=== PATIENT | female | born 1955 | race Caucasian/White ===

== ENCOUNTER → 2018-11-19 | Outpatient (CLI) | payer MEDICARE ==
--- NOTE | 2018-11-19 14:49 | KCIC ---
BILATERAL SCREENING MAMMOGRAM, 3-D History: Routine screening. Comparison: Bilateral mammogram 11/20/2017, [facility]. Technique: MLO and CC digital tomosynthesis (3D) images obtained. Radiologist reviewed these images on dedicated workstation. Findings: Breast Tissue Density A : The breasts are almost entirely fatty. Stable benign calcifications and biopsy clip in the left breast. Parenchymal asymmetry in the upper outer right breast at mid depth is stable. There are no dominant masses, suspicious microcalcifications, or architectural distortion. IMPRESSION: No mammographic evidence of malignancy. Recommend routine screening. BI-RADS category 2: Benign findings. The images were reviewed with computer-aided detection. Patient information is entered into reminder system with a target due date for the next screening mammogram. Mammography is the most sensitive method for finding small breast cancers, but it does not detect them all and is not a substitute for careful clinical examination. A negative mammogram does not negate a clinically suspicious finding and should not result in delay in biopsying a clinically suspicious abnormality. "Our facility is accredited by the [employer] Mammography [employer]." Electronically signed by: Freeman Maki MD (11/19/2018 2:46 PM) [id number]
== END | disposition home or self-care (01) ==
LOC: KCIC MAMMO 12:56
PROVIDERS: ATTEND Internal Medicine
DX: Z12.31 Encounter for screening mammogram for malignant neoplasm of breast (principal); N64.89 Other specified disorders of breast
CPT/HCPCS: 77063; 77067

== ENCOUNTER → 2019-11-13 | Outpatient (CLI) | payer MEDICARE ==
--- NOTE | 2019-11-13 13:27 | KCIC ---
Bilateral digital screening mammograms with 3-D tomosynthesis: Reason for examination: Routine screening. Comparison is made to previous studies dated back to 11/01/2015. Bilateral mammograms in CC and oblique projections were obtained with 2-D imaging and 3-D tomosynthesis imaging on a Siemens Inspiration unit and reviewed on the workstation. Interpretation was made with the benefit of CAD. The skin and nipples show no abnormalities. No abnormal axillary lymph nodes are seen. The breast parenchyma shows scattered fatty and fibroglandular density. (Breast density: Category B.) There continues to be dominant asymmetric parenchyma at the 10:00 B position of the right breast which is stable. There are no new dominant masses, suspicious calcifications or architectural distortion. Benign calcifications are present. Biopsy clip remains present on the left. Impression: No evidence of malignancy. Recommend routine screening. BI-RAD Category 2: Benign. "Our facility is accredited by the [employer] Mammography [employer]." This patient's information has been entered into a reminder system for the patient to be notified with the results of her examination and a target date for the next mammogram. Electronically signed by: Gayle Rodriguez MD (11/13/2019 1:25 PM) [email or web address]
== END ==
LOC: KCIC MAMMO 10:27
PROVIDERS: ATTEND Internal Medicine
DX: Z12.31 Encounter for screening mammogram for malignant neoplasm of breast (principal)
CPT/HCPCS: 77063; 77067

== ENCOUNTER → 2020-11-14 | Outpatient (CLI) | payer MEDICARE ==
--- NOTE | 2020-11-14 12:35 | KCIC ---
Bilateral digital screening mammograms with 3-D tomosynthesis: Reason for examination: Routine screening. Comparison is made to previous studies dated back to 11/01/2015. Bilateral mammograms in CC and oblique projections were obtained with 2-D imaging and 3-D tomosynthes is imaging on a Siemens Inspiration unit and reviewed on the workstation. Interpretation was made wit h the benefit of CAD. The skin and nipples show no abnormalities. No abnormal axillary lymph nodes are seen. The breast par enchyma shows scattered fatty and fibroglandular density. (Breast density: Category B.) There appears to be a new nodular parenchymal density at the 9:00 B position of the right breast approximately 6 c m from the nipple. Further evaluation with ultrasound is recommended. There are no other new dominant masses, suspicious calcifications or architectural distortion. Impression: Nodular density at the 9:00 B position of the right breast 6 cm from the nipple. Recommend further ev aluation with ultrasound. BI-RADS Category 0: Incomplete. Needs additional imaging evaluation. "Our facility is accredited by the [employer] Mammography Program." This patient's information has been entered into a reminder system for the patient to be notified wit h the results of her examination and a target date for the next mammogram. Electronically signed by: Gayle Rodriguez MD (11/14/2020 12:33 PM) [email or web address]
== END ==
LOC: KCIC MAMMO 09:50
PROVIDERS: ATTEND Internal Medicine
DX: Z12.31 Encounter for screening mammogram for malignant neoplasm of breast (principal); N63.41 Unspecified lump in right breast, subareolar
CPT/HCPCS: 77063; 77067

== ENCOUNTER → 2020-11-23 | Outpatient (CLI) | payer MEDICARE ==
--- NOTE | 2020-11-23 12:02 | KCIC ---
EXAMINATION: US BREAST RT VIEWS: Targeted right breast ultrasound INDICATION: Reason: callback right breast / Spl. Instructions: / History: COMPARISON: Mammogram from 11/14/2020 FINDINGS: Right breast ultrasound reveals a peripherally hypoechoic centrally echogenic 8.2 mm mass at the 9:00 position, 8 cm deep to the nipple. This mass has vascularity centrally and is consistent with a intramammary lymph node. This appears similar to intramammary lymph node seen on prior mammogr ams. Additional ultrasound at the 7 to 9:00 additions reveals predominantly fatty replaced normal-ad earing fibroglandular tissue. There is no discernible mass. Right axillary lymph nodes are unremarkab le. IMPRESSION: No definite sonographic correlate to nodular parenchymal density seen on prior mammogram . 6 month follow-up with mammogram and possible right breast ultrasound. BI-RADS 3. Probably benign findings. Short interval follow-up in 6 months with right breast mammogram and possible ultrasound. Electronically signed by: Richard Rivera DO (11/23/2020 11:59 AM) [email or web address]
== END ==
LOC: KCIC US 10:42
PROVIDERS: ATTEND Internal Medicine
DX: N63.11 Unspecified lump in the right breast, upper outer quadrant (principal)
CPT/HCPCS: 76641

== ENCOUNTER → 2021-05-17 | Outpatient (CLI) | payer MEDICARE ==
--- NOTE | 2021-05-17 16:55 | KCIC ---
Right breast diagnostic digital mammograms with 3-D tomosynthesis: Reason for examination: Follow-up nodule. Comparison is made to previous studies dated back to 11/05/2016. Right breast mammograms in CC and oblique projections were obtained with 2-D imaging and 3-D tomosynt hesis imaging on a Siemens Inspiration unit and reviewed on the workstation. Interpretation was made with the benefit of CAD. The skin and nipple show no abnormalities. No abnormal axillary lymph nodes are seen. The breast pare nchyma shows scattered fatty and fibroglandular density. (Breast density: Category B.) There continue s to be nodular asymmetry at the 10:00 B position of the right breast probably represents the intrama mmary lymph node seen previously. The small nodular density at the 9:00 position appears be slightly smaller than on previous exam and may have been fibrocystic. There are no new dominant masses, suspic ious calcifications or architectural distortion. Impression: No change in the nodular asymmetry at the 10:00 B position which probably represents an intramammary lymph node. Slight decrease in size of the small nodule seen the 9:00 B position. Ultrasound to lala w. BI-RAD Category 0: Incomplete. Needs additional imaging evaluation. Right breast ultrasound: Comparison is made to previous study dated 11/23/2020. Ultrasound examination of the right breast and axilla was performed. There is a small 5.8 mm nodule at the 10:00 position 7.5 cm which probably corresponds to the intrama mmary lymph node seen previously. No other cystic or solid nodules are seen. No abnormal appearing ly mph nodes are seen in the right axilla. IMPRESSION: Small nodule at the 10:00 position probably representing the intramammary lymph node seen previously. No suspicious-appearing lesions are seen. Recommend continued 6 month follow-up with right breast ul trasound at the time of bilateral mammograms. BI-RADS Category 3: Probably Benign. "Our facility is accredited by the [employer] Mammography Program." This patient's information has been entered into a reminder system for the patient to be notified wit h the results of her examination and a target date for the next mammogram. Electronically signed by: Gayle Rodriguez MD (05/17/2021 4:52 PM) [email or web address]
== END ==
LOC: KCIC MAMMO 12:54
PROVIDERS: ATTEND Internal Medicine
DX: N63.11 Unspecified lump in the right breast, upper outer quadrant (principal); R92.8 Other abnormal and inconclusive findings on diagnostic imaging of breast
CPT/HCPCS: 76641; 77065; G0279; 77061